=== PATIENT | male | born 1935 | race Caucasian/White ===

== ENCOUNTER → 2017-11-01 | Outpatient (CLI) | payer MEDICARE, BC ==
[~2017-11-01] MED LIST: FLOMAX0.4 MG PO; FLONASE16 GM INH; LUNESTA PO
--- NOTE | 2017-11-01 12:53 | Diagnostic Imaging Report ---
EXAM: Renal Ultrasound INDICATION: \[id number] \[id number] \S\[place] COMPARISON: Renal ultrasound dated 06/17/2017 TECHNIQUE: Transverse and longitudinal images of the kidneys and bladder were obtained. FINDINGS: Right Kidney: Size: 10 cm Echogenicity: Normal Parenchymal thickness: Normal Collecting system: No hydronephrosis Stones: None Cyst/Mass: None Left Kidney: Size: 10 cm Echogenicity: Normal Parenchymal thickness: Normal Collecting system: No hydronephrosis Stones: None Cyst/Mass: None Bladder: Mild wall thickening. Bilateral ureteral jets were seen. Questionable dependent debris. Enlarged prostate gland measuring 6.5 x 5.7 x 7.1 cm (135.7 cc). IMPRESSION: Normal kidneys. Prostatomegaly with mild bladder wall thickening, likely related to chronic outflow obstruction. Questionable mild dependent bladder debris. Correlate with urinalysis. Signed by: Dr. Brayan Awan MD on 11/01/2017 12:49 PM
== END ==
LOC: US 09:28
PROVIDERS: ATTEND Urology
DX: R31.9 Hematuria, unspecified (principal)
CPT/HCPCS: 76770

== ENCOUNTER 2018-03-20 07:42 | Emergency (ER) | payer MEDICARE, BC ==
[~2018-03-20] VITALS: Ht 172.7 cm; Wt 64.4 kg
--- NOTE | 2018-03-20 08:47 | Diagnostic Imaging Report ---
History:Fell off ladder Comparison studies:None Technique: Axial images were obtained from the skull base to the vertex. Coronal and sagittal images reconstructed from the axial data. Intravenous contrast: None Findings: Scalp/skull: No abnormalities. Extra-axial spaces: No masses. No fluid collections. Brain sulci: Mildly prominent. Ventricles: Mild compensatory dilatation. No hydrocephalus. Parenchyma: Describe hypodensities in the supratentorial white matter are small vessel ischemic changes. No masses, hemorrhage, acute or chronic cortical vascular insults. Sellar/suprasellar region: No abnormalities. Craniocervical junction: Patent foramen magnum. No Chiari one malformation. Incidental findings: Atherosclerotic calcifications in the carotid siphons . Impression: No acute abnormalities. Chronic findings: 1. Mild generalized volume loss. 2. Mild supratentorial white matter small vessel ischemic changes. Signed by: DR Nii Rae M.D. on 03/20/2018 8:43 AM
--- NOTE | 2018-03-20 09:38 | Diagnostic Imaging Report ---
History:Fell off ladder Comparison studies: None Technique: Axial images were obtained through the maxillofacial region. Coronal and sagittal images reconstructed from the axial data. Intravenous contrast: None Findings: Soft tissues: No abnormalities. Bones: No fractures or bone abnormalities. Orbits: Globes: Intact Extra or intraconal abnormalities: None. Paranasal sinuses: Mild mucosal thickening of the maxillary sinuses alveolar recesses. The remaining paranasal sinuses are clear. IMPRESSION: 1. No acute abnormality Signed by: DR Nii Rae M.D. on 03/20/2018 9:35 AM
[2018-03-20 09:50] VITALS: BP 136/79
== END 2018-03-20 09:48 | disposition home or self-care (01) ==
LOC: ER 07:42
DX: S01.412A Laceration without foreign body of left cheek and temporomandibular area, initial encounter (principal); W11.XXXA Fall on and from ladder, initial encounter; Y93.H2 Activity, gardening and landscaping; Y92.017 Garden or yard in single-family (private) house as the place of occurrence of the external cause
CPT/HCPCS: 70450; 70486; 99283

== ENCOUNTER → 2022-11-30 | Outpatient (CLI) | payer MEDICARE, BC | LOC: MRI 12:44 | PROVIDERS: ATTEND Family Medicine | DX: R42 Dizziness and giddiness (principal); R26.89 Other abnormalities of gait and mobility | CPT/HCPCS: 70551 ==

== ENCOUNTER → 2023-01-15 | Day surgery (SDC) | payer MEDICARE, BC ==
[2023-01-07 10:04] LABS: BASOPHILS % 0.5 % (0.0-1.0); EOSINOPHILS # (AUTO) 0.1 (0.0-0.4); EOSINOPHILS % 1.1 % (0.0-6.0); HEMATOCRIT 42.7 % (38.2-49.6); LYMPHOCYTES # (AUTO) 1.9 (1.0-3.2); LYMPHOCYTES % 29.8 % (18.0-39.1); MEAN CORPUSCULAR HEMOGLOBIN 32.4 pg (28-32); MEAN CORPUSCULAR HGB CONC 32.8 g/dL (31-35); MEAN CORPUSCULAR VOLUME 98.8 fL (81-99); MONOCYTES # (AUTO) 0.5 (0.2-0.8); NEUTROPHILS # (AUTO) 3.8 (2.1-6.9); NEUTROPHILS % 60.1 % (38.7-80.0); PLATELET COUNT 169 x10e3/uL (140-360); RED BLOOD COUNT 4.32 x10e6/uL (4.3-5.7); RED CELL DISTRIBUTION WIDTH 12.4 % (11.7-14.4)
[~2023-01-15] MED LIST changes: +CENTRUM ADULTS1 EACH PO; +FISH OIL 1,0001 EAC7 PO; +HYOSCYAMINE SULFATE 0.5 MG/ML INJ ONE; +LACTATED RINGER'S 1,000 ML ONE; +LIDOCAINE HCL 2% LOCAL INJ 5 ML SDV VIAL INJ ONE; +PROPOFOL IV EMULSION 10 MG/ML 20 ML VIAL ONE
[2023-01-15 12:00] VITALS: BP 119/80
== END | disposition home or self-care (01) ==
LOC: OR 08:23
PROVIDERS: ATTEND Internal Medicine Gastroenterology
DX: K59.09 Other constipation (principal); D12.0 Benign neoplasm of cecum; K57.30 Diverticulosis of large intestine without perforation or abscess without bleeding; K64.8 Other hemorrhoids; N40.0 Benign prostatic hyperplasia without lower urinary tract symptoms; R41.3 Other amnesia; H91.90 Unspecified hearing loss, unspecified ear; Z88.8 Allergy status to other drugs, medicaments and biological substances; Z01.810 Encounter for preprocedural cardiovascular examination; Z01.812 Encounter for preprocedural laboratory examination
CPT/HCPCS: 36415; 45380; 85025; 88305; 93005; J1980; J2001; J2704; J7121; 45378